=== PATIENT | female | born 1960 | race Caucasian/White ===

== ENCOUNTER 2024-09-21 10:51 | Observation (INO) ==
[2024-09-21] MEDS: SOLU-Medrol 125 MG VIAL IVP ONE (12:28)
[2024-09-21 12:56] LABS: BASOPHILS # (AUTO) 0.1 X10^3/uL (0.0-0.1); BASOPHILS % (AUTO) 0.8 % (0.2-1.0); EOSINOPHILS # (AUTO) 0.1 x10^3/uL (0.0-0.2); EOSINOPHILS % (AUTO) 0.9 % (0.9-2.9); HEMATOCRIT 48.8 % (36.0-47.0); HEMOGLOBIN 16.6 g/dL (12.0-16.0); LYMPHOCYTES # (AUTO) 2.1 X10^3/uL (1.3-2.9); LYMPHOCYTES % (AUTO) 19.7 % (21.0-51.0); MEAN CORPUSCULAR HEMOGLOBIN 31.9 pg (27.0-34.0); MEAN CORPUSCULAR VOLUME 93.9 fL (80.0-100.0); MEAN PLATELET VOLUME 6.9 fL (7.4-11.0); MONOCYTES % (AUTO) 9.7 % (0.0-13.0); NEUTROPHILS # (AUTO) 7.4 x10^3/uL (2.2-4.8); NEUTROPHILS % (AUTO) 68.9 % (42.0-75.0); PLATELET COUNT 276 X10^3/uL (150.0-450.0); RED CELL DISTRIBUTION WIDTH 15.2 % (11.6-16.5); WHITE BLOOD COUNT 10.8 X10^3/uL (3.6-10.0)
[2024-09-21 13:17] LABS: ALANINE AMINOTRANSFERASE 23 Units/L (12-78); ALKALINE PHOSPHATASE 75 Units/L (46-116); ASPARTATE AMINO TRANSFERASE 19 Units/L (15-37); BLOOD UREA NITROGEN 11 mg/dL (7-18); CHLORIDE 98 mmol/L (98-107); COR CA(FOR HYPOALB) 9.8 mg/dL (8.5-10.1); COR NA(FOR HYPERGLY) 137 mmol/L (136-145); CREATININE 0.61 mg/dL (0.55-1.02); GLUCOSE 146 mg/dL (65-99); MAGNESIUM 1.7 mg/dL (2.0-2.9); POTASSIUM 3.4 mmol/L (3.5-5.1); SODIUM 136 mmol/L (136-145); TOTAL PROTEIN 6.6 g/dL (6.4-8.2); TSH (3RD GENERATION) 1.561 uIU/mL (0.358-3.74); eGFR NON BLACK RACES > 60 (>60)
[2024-09-21] MEDS ORDERED: OMNIPAQUE 350 mg/mL 100 mL BTL 100 ML ONE (15:07)
--- NOTE | 2024-09-21 15:39 | RAD ---
EXAM:CHEST, 1 VIEWHISTORY:HYPOXIA;COMPARISON:Prior study or studies were utilized for comparison during interpretation with the most relevant dated 09/21/2024TECHNIQUE:CHEST, 1 VIEWFINDINGS:Chest:Lines and tubes: NoneMediastinum: Cardiac and mediastinal shadow is within normal limits for size and contour.Pulmonary vessels: No pulmonary vascular congestion.Lung pearl: No suspicious airspace opacity.Pleura: No effusion. No pneumothorax.Bones and soft tissues: No acute osseous or soft tissue abnormality.IMPRESSION:1. No acute cardiopulmonary abnormalityTHIS IS AN ELECTRONICALLY VERIFIED FINAL [id number]/21/2024 3:36 PM - Electronically signed by Daquan Duval MD
--- NOTE | 2024-09-21 16:06 | CT ---
EXAM:SOFT TISSUE NECK WITH CONHISTORY:POSS INFECTION, COUGHING UP BLOOD, LOST VOICE;COMPARISON:NoneTECHNIQUE:Multiple axial images of the neck soft tissues were obtained with IV contrast. Coronal and sagittal reformats were made and reviewed. Dose reduction techniques included Automated Exposure Control (AEC) and adjustment of mA and kV.FINDINGS:The larynx is markedly abnormal. I believe this probably represents a neoplastic process.Enhancing mass is present involving the larynx, mostly on the right side and anterior. This extends from the true vocal cords into the epiglottis in the surrounding soft tissues, including the piriform sinus and vallecular sinus. I estimate the size to be about 4.3 cm craniocaudal and 4.2 cm wide. The finding is suspicious for carcinoma.Because of the mass there is narrowing of the laryngeal vestibule airway and the glottic airway. But the remaining pharyngeal and tracheal airway is preserved. Adenoids, tonsils, soft palate and prevertebral soft tissues are not enlarged.Parotid glands and submandibular salivary glands have normal size and enhancement. The thyroid has a normal size and configuration.No obvious cervical lymphadenopathy.No fluid in the sinuses or mucosal thickening to suggest sinusitis. There is no mastoid effusion. Nasal cavity is patent with no mass or polyp. Globes and orbital contents appear normal.Degenerative spondylitic changes are present in the spine.See separate chest CT report same day for additional findings.IMPRESSION:1. Large enhancing laryngeal mass suspicious for carcinoma2. Severe narrowing of the supraglottic and glottic airwayTHIS IS AN ELECTRONICALLY VERIFIED FINAL [id number]/21/2024 3:57 PM - Electronically signed by Joseluis Post MD
--- NOTE | 2024-09-21 16:06 | CT ---
EXAM: CHEST WITH CONTRAST HISTORY: POSS INFECTION; COMPARISON: Chest CT 11/11/2023 TECHNIQUE: Multiple CT axial images of the chest were obtained with IV contrast. Coronal and sagittal images we re reconstructed. Dose reduction techniques included Automated Exposure Control (AEC) and adjustment of mA and kV. FINDINGS: The heart is normal in size. Atherosclerotic calcification is present in the coronary arteries. The pulmonary artery and aorta have a normal caliber. No mediastinal mass or significant lymphadenopath y. The thyroid has a normal size and configuration. No axillary mass or significant axillary lymphadeno carola is identified. See separate CT neck same day for additional findings. Emphysematous changes are present in the lungs. Left lower lobe collapse is present. There is proba rafiq a obstruction of the left lower lobe bronchus which is new since previous exam. This could be se cretions. But the collapse is unchanged. There is no abnormality to suggest acute pneumonia. Limited images of the upper abdomen show no significant abnormality. No significant bone abnormality. Fixation hardware is present in the lower cervical spine. IMPRESSION: 1. Chronic left lower lobe collapse, now with bronchial obstruction 2. Emphysema without acute pneumonia THIS IS AN ELECTRONICALLY VERIFIED FINAL REPORT 09/21/2024 3:51 PM - Electronically signed by Joseluis Post MD
[2024-09-21] MEDS ORDERED: NORCO 7.5/325 MG TAB PO PRN (17:42)
[2024-09-21] MEDS: NS 1,000 ML IV 1,000 ML IV SCH (18:28)
[2024-09-21] MEDS: PROTONIX INJ 40 MG VIAL IVP SCH (18:29)
[2024-09-21] MEDS: VALIUM PO PRN (18:33)
[2024-09-21] MEDS: PULMICORT NEB TX 0.5 MG NEB SCH (20:06)
[2024-09-21] MEDS: XOPENEX 1.25 MG/3 ML NEBULE NEB SCH (20:06)
[2024-09-21] MEDS: DESYREL PO SCH (20:20)
[2024-09-21] MEDS: ZANAFLEX PO SCH (20:21)
[2024-09-21] MEDS: CRESTOR TAB 10 MG PO SCH (20:21)
[2024-09-21] MEDS: MEGACE PO SCH (20:21)
[2024-09-21] MEDS: PAXIL PO SCH (20:21)
[2024-09-21] MEDS ORDERED: DUONEB 0.5 MG/3 MG (3 mL) NEB SCH (21:00)
[2024-09-22] MEDS: SYNTHROID 25 mcg TAB PO SCH (05:42)
[2024-09-22 05:53] LABS: BASOPHILS % (AUTO) 0.1 % (0.2-1.0); HEMATOCRIT 47.9 % (36.0-47.0); HEMOGLOBIN 16.1 g/dL (12.0-16.0); LYMPHOCYTES # (AUTO) 1.6 X10^3/uL (1.3-2.9); LYMPHOCYTES % (AUTO) 17.1 % (21.0-51.0); MEAN CORPUSCULAR HEMOGLOBIN 31.7 pg (27.0-34.0); MEAN CORPUSCULAR HGB CONC 33.6 g/dL (33.0-35.0); MEAN CORPUSCULAR VOLUME 94.4 fL (80.0-100.0); MEAN PLATELET VOLUME 7.3 fL (7.4-11.0); MONOCYTES # (AUTO) 0.8 x10^3/uL (0.3-0.8); MONOCYTES % (AUTO) 8.3 % (0.0-13.0); NEUTROPHILS % (AUTO) 74.5 % (42.0-75.0); PLATELET COUNT 277 X10^3/uL (150.0-450.0); RED BLOOD COUNT 5.07 X10^6/uL (3.5-5.4); RED CELL DISTRIBUTION WIDTH 15.1 % (11.6-16.5); WHITE BLOOD COUNT 9.3 X10^3/uL (3.6-10.0)
[2024-09-22 06:38] LABS: ALANINE AMINOTRANSFERASE 22 Units/L (12-78); ALBUMIN 2.9 g/dL (3.4-5.0); ALKALINE PHOSPHATASE 72 Units/L (46-116); ASPARTATE AMINO TRANSFERASE 18 Units/L (15-37); BLOOD UREA NITROGEN 6 mg/dL (7-18); CALCIUM 9.3 mg/dL (8.5-10.1); CARBON DIOXIDE 31.4 mmol/L (21-32); CHLORIDE 104 mmol/L (98-107); COR CA(FOR HYPOALB) 10.2 mg/dL (8.5-10.1); CREATININE 0.56 mg/dL (0.55-1.02); GLUCOSE 99 mg/dL (65-99); MAGNESIUM 1.7 mg/dL (2.0-2.9); POTASSIUM 3.6 mmol/L (3.5-5.1); SODIUM 142 mmol/L (136-145); TOTAL PROTEIN 6.3 g/dL (6.4-8.2); eGFR NON BLACK RACES > 60 (>60)
[2024-09-22] MEDS ORDERED: CONSULT PHARMACY - POTASSIUM & MAGNESIUM XX SCH (07:00)
[2024-09-22] MEDS: MAG-OX TAB PO SCH (08:10)
[2024-09-22] MEDS: K-DUR TAB 20 MEQ PO SCH (08:11)
[2024-09-22] MEDS: PLAVIX PO SCH (08:11)
[2024-09-22] MEDS: SOLU-Medrol 40 MG VIAL IVP SCH (08:15)
[2024-09-22] MEDS: COZAAR PO SCH (08:25)
[2024-09-22] MEDS ORDERED: LOVENOX INJ 40 MG SYR SC SCH ×2 (10:00→16:00)
[2024-09-22 11:51] VITALS: BP 124/76; PULSE 97; RESP 19; TEMP 98.8; O2SAT 92
--- NOTE | 2024-09-22 12:36 | DR.H&P ---
H&P History & Physical for Day of: H&P Date: 09/21/24 Chief Complaint Chief Complaint: Cough, congestion, weight loss, and anterior throat mass. History of Present Illness History of Present Illness: This is a 64 yo white female who is here today with complaint of cough, congestion and lost her voice. Patient requesting referral to ENT. Patient has been sick over the last several weeks and not getting any better. She continues to lose weight in which she lost 6 pounds in 2022 and 19 pounds so far in 2023. She reports that she has got a bulge in the front of her neck now and is getting hard to swallow and she is having a hard time coughing up mucus. The patient looks emancipated today and very dehydrated. We have t reated her with oral antibiotics recently such as Augmentin, azithromycin as well as oral steroids for lower respiratory infections over the last few weeks and they have not improved. I will go ahead and direct admit her to the hospital today for further workup including the CT scan of her neck and lungs since he has a long history of cigarette smoking most of her life with this most profound significant weight loss. I am concerned that she may have throat cancer which we will follow-up on the CT with IV contrast scan. We will also obtain chest x-ray to see if she is having underlying pneumonia and/or COPD exacerbation. Patient is a direct admit from Dr. Panchito Farrell MD's office today directly to [facility] healthcare [facility]. Past Medical History Past Medical History: Anxiety, Arthritis, COPD, Coronary Artery Disease, Depression, GERD, Hypertension and Hypothyroidism; denies Asthma, Cirrhosis, CHF, CVA, Dementia, Diabetes, Dialysis, Migraines, Gout, Headaches, Hyperthyroidism, Renal Disease, Schizophrenia, Sleep Apnea or Cancer Additional Medical History: Chronic persistent insomnia, chronic left lower lobe collapse lung, history of alcohol use disorder, chronic back pain Past Surgical History Surgical History: Angioplasty/Stents, Appendectomy, Hysterectomy and Ortho Surgery Family History Family Medical History: Cancer and Coronary Artery Disease Social History Does patient currently use any type of tobacco product: Yes Have you used tobacco products in the last 12 months: Yes Type of Tobacco Use: Cigarettes How many years tobacco product used: 50 Packs per day or dips/chews per day: 1 Alcohol Use: None Drug Use: None Medications Home Medications: Home Medications Medication Instructions Recorded Confirmed Type clopidogrel 75 mg tablet 75 mg PO QDAY 09/21/24 09/21/24 History levothyroxine 25 mcg tablet 25 mcg PO QDAY 09/21/24 09/21/24 History Allergies Allergies Allergy/AdvReac Type Severity Reaction Status Date / Time baclofen Allergy Unknown Verified 07/01/23 10:12 gabapentin Allergy Unknown Verified 07/01/23 10:12 morphine Allergy Unknown HEADACHE Verified 07/01/23 10:12 Labs 09/22/24 05:20 09/22/24 05:20 Labs: Laboratory WBC 9.3 X10^3/uL (3.6-10.0) 09/22/24 05:20 RBC 5.07 X10^6/uL (3.5-5.4) 09/22/24 05:20 Hgb 16.1 g/dL (12.0-16.0) H 09/22/24 05:20 Hct 47.9 % (36.0-47.0) H 09/22/24 05:20 MCV 94.4 fL (80.0-100.0) 09/22/24 05:20 MCH 31.7 pg (27.0-34.0) 09/22/24 05:20 MCHC 33.6 g/dL (33.0-35.0) 09/22/24 05:20 RDW 15.1 % (11.6-16.5) 09/22/24 05:20 Plt Count 277 X10^3/uL (150.0-450.0) 09/22/24 05:20 MPV 7.3 fL (7.4-11.0) L 09/22/24 05:20 Neut % (Auto) 74.5 % (42.0-75.0) 09/22/24 05:20 Lymph % (Auto) 17.1 % (21.0-51.0) L 09/22/24 05:20 [place] % (Auto) 8.3 % (0.0-13.0) 09/22/24 05:20 Eos % (Auto) 0.0 % (0.9-2.9) L 09/22/24 05:20 Baso % (Auto) 0.1 % (0.2-1.0) L 09/22/24 05:20 Neut # (Auto) 7.0 x10^3/uL (2.2-4.8) H 09/22/24 05:20 Lymph # (Auto) 1.6 X10^3/uL (1.3-2.9) 09/22/24 05:20 [place] # (Auto) 0.8 x10^3/uL (0.3-0.8) 09/22/24 05:20 Eos # (Auto) 0.0 x10^3/uL (0.0-0.2) 09/22/24 05:20 Baso # (Auto) 0.0 X10^3/uL (0.0-0.1) 09/22/24 05:20 Absolute Nucleated RBC 0.1 /100WBC 09/22/24 05:20 Sodium 142 mmol/L (136-145) 09/22/24 05:20 Corrected Sodium TNP 09/22/24 05:20 Potassium 3.6 mmol/L (3.5-5.1) 09/22/24 05:20 Chloride 104 mmol/L (98-107) 09/22/24 05:20 Carbon Dioxide 31.4 mmol/L (21-32) 09/22/24 05:20 BUN 6 mg/dL (7-18) L 09/22/24 05:20 Creatinine 0.56 mg/dL (0.55-1.02) 09/22/24 05:20 Est GFR (MDRD) Af Amer > 60 (>60) 09/22/24 05:20 Est GFR (MDRD) Non-Af > 60 (>60) 09/22/24 05:20 Glucose 99 mg/dL (65-99) 09/22/24 05:20 Calcium 9.3 mg/dL (8.5-10.1) 09/22/24 05:20 Corrected Calcium 10.2 mg/dL (8.5-10.1) H 09/22/24 05:20 Magnesium 1.7 mg/dL (2.0-2.9) L 09/22/24 05:20 Total Bilirubin 0.30 mg/dL (0.2-1.0) 09/22/24 05:20 AST 18 Units/L (15-37) 09/22/24 05:20 ALT 22 Units/L (12-78) 09/22/24 05:20 Alkaline Phosphatase 72 Units/L (46-116) 09/22/24 05:20 Total Protein 6.3 g/dL (6.4-8.2) L 09/22/24 05:20 Albumin 2.9 g/dL (3.4-5.0) L 09/22/24 05:20 Globulin 3.4 g/dL (2.5-4.5) 09/22/24 05:20 Albumin/Globulin Ratio 0.9 Ratio (1.1-2.1) L 09/22/24 05:20 Vitamin B12 619 pg/mL (193-986) 09/21/24 12:45 Folate 12.2 ng/mL (>8.6) 09/21/24 12:45 TSH 3rd Generation 1.561 uIU/mL (0.358-3.74) 09/21/24 12:45 Review of Systems Constitutional: Chills, Sweats, Weakness and Malaise; denies Fever Eyes: No Symptoms Reported; denies Vision Change, Conjunctivae Inflammation or Redness ENT: Nose Discharge, Nose Congestion, Throat Pain and Throat Swelling; denies Ear Pain, Ear Discharge, Nose Pain, Mouth Pain or Mouth Swelling Respiratory: Cough, Shortness of Breath, SOB with Excertion, Sputum and Wheezing; denies Hemoptysis or Pleuritic Pain Cardiovascular: Light Headedness; denies Chest Pain, Palpitations, Orthopnea, Paroxysmal Noc. Dyspnea or Edema Gastrointestinal: Nausea; denies Vomiting, Abdominal Pain, Diarrhea, Constipation, Melena or Hematochezia Genitourinary: denies Dysuria, Frequency, Incontinence, Hematuria or Retention Musculoskeletal: Neck Pain; denies Shoulder Pain or Back Pain Skin: denies Rash, Lesions, Jaundice, Bruising, Wound or Ecchymosis Neurological: Weakness; denies Numbness, Incoordination, Change in Speech, Confu yaron or Seizures Physical Exam Vital Signs: Vital Signs Temperature 98.7 F Temperature 97.7 F Pulse Rate [Left Brachial] 106 Pulse Rate [Left Brachial] 115 Pulse Rate 96 Respiratory Rate 18 Respiratory Rate 18 Blood Pressure [Left Arm] 125/79 Blood Pressure [Left Arm] 145/74 O2 Sat by Pulse Oximetry 96 O2 Sat by Pulse Oximetry 93 O2 Sat by Pulse Oximetry 96 Oriented: Normal, Time, Person and Place Eyes: Normal Ear: Normal Nose: Normal Throat: Other (Enlarged right anterior mass in the mid part of the throat on palpation.) Respiratory: Diminished Throughout and Rhonchi Throughout Cardiovascular: Tachycardia Auscultation: Bowel Sounds: Normal Palpation: Normal Tenderness: Normal Skin: Decreased [place]urgur Musculoskeletal: Normal Psychiatric: Anxiety and Depression; negative Agitation Mood Description: Depressed, Sad and Anxious Affect: Anxious and Depressed Speech Pattern: Unclear Assessment/Plan (1) Acute exacerbation of chronic obstructive pulmonary disease: Status: Acute Plan: 1. Start IV Rocephin 1 g IV daily and azithromycin after blood cultures, sputum cultures have been collected. 2. Solu-Medrol 125 mg IV x 1 now, then 60 mg IV twice daily starting tomorrow and thereafter. 3. DuoNebs every 6 hours. 4. Check CBC, CMP, magnesium, lactic acid level, blood cultures x 2, AIT sputum culture and routine sputum culture on admission. 5. Check viral swabs to rule out underlying Influenza A&B, RSV and COVID19. 6. We will plan on obtaining a general surgery consult to see if we can do a biopsy here or see if the surgeon recommends transfer to a tertiary care center for further workup and treatment. (2) Throat mass: Status: Acute Plan: 1. Check CT scan of patient's throat and lungs with IV contrast. 2. Check chest x-ray. 3. Follow-up with labs, radiology and microbiology reports when available. (3) Tachycardia: Narrative Support Text: Suspect the patient's tachycardia is likely secondary to dehydration since she has not been eating and drinking very much according to her statement. Status: Acute Plan: Normal saline IV fluid at 125 mL/h. (4) Dehydration symptoms: Status: Acute Plan: 1. Rehydration with normal saline at 125 mL/h. 2. Follow-up with CMP today when available. 3. Repeat CMP tomorrow morning as well as magnesium. Review H&P Reviewed: Yes Patient was examined?: Yes
== END 2024-09-22 16:00 | disposition short-term general hospital (02) ==
LOC: MED/SURG
PROVIDERS: ADMIT Family Medicine; ATTEND Family Medicine
DX: R63.4 Abnormal weight loss; Z72.0 Tobacco use; R73.09 Other abnormal glucose; R26.89 Other abnormalities of gait and mobility; R05.8 Other specified cough; J44.1 Chronic obstructive pulmonary disease with (acute) exacerbation; R06.02 Shortness of breath; F41.8 Other specified anxiety disorders; R62.7 Adult failure to thrive; R00.0 Tachycardia, unspecified; K21.9 Gastro-esophageal reflux disease without esophagitis; Z68.1 Body mass index [BMI] 19.9 or less, adult; E86.0 Dehydration; I10 Essential (primary) hypertension; R53.1 Weakness; J39.2 Other diseases of pharynx; R13.11 Dysphagia, oral phase; I25.10 Atherosclerotic heart disease of native coronary artery without angina pectoris; R09.02 Hypoxemia; E87.6 Hypokalemia; E83.42 Hypomagnesemia